=== PATIENT | male | born 2000 | race Caucasian/White ===

== ENCOUNTER → 2024-03-22 08:53 | Outpatient (REF) | payer OTHER, SELFPAY | LOC: HWRAD 08:53 | PROVIDERS: ATTENDING PHYSICIAN Pediatrics Pediatric Pulmonology; FAMILY PHYSICIAN Emergency Medicine | DX: E84.9 Cystic fibrosis, unspecified (principal) | CPT/HCPCS: 77080 ==

== ENCOUNTER → 2024-04-29 15:54 | Outpatient (REF) | payer BC, SELFPAY | LOC: HWRAD 15:54 | PROVIDERS: ATTENDING PHYSICIAN Pediatrics Pediatric Pulmonology; FAMILY PHYSICIAN Pediatrics Pediatric Pulmonology | DX: E84.9 Cystic fibrosis, unspecified (principal) | CPT/HCPCS: 71046 ==